=== PATIENT | female | born 1930 | race Caucasian/White ===

== ENCOUNTER 2017-03-16 00:21 | Emergency (ER) | payer OTHER ==
[~2017-03-16] VITALS: Ht 162.6 cm; Wt 68.2 kg
[2017-03-16 00:27] VITALS: Ht 162.6 cm; Wt 68.2 kg
[2017-03-16] MEDS ORDERED: DEXTROSE 50% 50 ML SYRINGE IV STA (01:50)
--- NOTE | 2017-03-16 04:12 | ERD ---
ER Documentation Chief Complaint Date/Time DATE: 03/16/17 TIME: 04:10 Chief Complaint BIBA RA39 BS23 at home,rec'd D10,BS rechecked 257 HPI Patient is an 87-year-old female with hypertension and diabetes who presents with low blood sugar. The patient was brought in by ambulance. She was altered at home and her sugar was 43. The daughter gave her insulin by mistake thinking that this would bring the sugar. The medics arrived in the sugar reading was "low" that they gave 250 mL of D10 and now the sugar was 257. The patient is now more awake. The patient came from home. The patient has a G- tube and gets tube feedings at home. ROS All systems reviewed and are negative except as per history of present illness. Allergies Allergies: Coded Allergies: No Known Allergy (Unverified , 03/16/17) PMhx/Soc Positive for diabetes and hypertension FmHx Family History: diabetes Physical Exam Vitals Vital Signs Date Time Temp Pulse Resp B/P Pulse Ox O2 Delivery O2 Flow Rate FiO2 03/16/17 03:52 73 18 144/50 100 Room Air 03/16/17 02:33 65 16 145/50 100 Room Air 03/16/17 00:45 73 16 149/59 98 Room Air 03/16/17 00:27 97.5 86 18 178/78 97 Physical Exam Const: No acute distress Head: Atraumatic Eyes: Normal Conjunctiva ENT: Normal External Ears, Nose and Mouth. Neck: Full range of motion..~ No meningismus. Resp: Clear to auscultation bilaterally Cardio: Regular rate and rhythm, no murmurs Abd: Soft, non tender, non distended. Normal bowel sounds Skin: No petechiae or rashes Back: No midline or flank tenderness Ext: No cyanosis, or edema Neur: Awake and alert Psych: Normal Mood and Affect Results 24 hrs Laboratory Tests Test 03/16/17 01:47 03/16/17 03:48 Bedside Glucose 55mg/dL 185mg/dL Current Medications Medications (Trade) Dose Ordered Sig/Jayla Route PRN Reason Start Time Stop Time Status Last Admin Dose Admin Dextrose (D50w Syringe) 50 ml IV STAT IV 03/16/17 01:50 03/16/17 01:51 DC 03/16/17 02:01 Procedures/MDM Patient is a 87-year-old female presents with hypoglycemia. Her daughter mistakenly gave her insulin when the sugar was already low. The patient was given D10 by paramedics and her sugar came up. She had another Accu-Chek done in the emergency department which showed a low blood sugar and D50 was given via the IV. I also told the daughters to bring in the patient's tube feeds and we did give her tube feedings in the emergency department. The patient was watched in the emergency department for 4 hours and no longer is hypoglycemic and has a normal neurologic exam. The patient will be discharged to the care of the daughters. They were educated not to give insulin when the patient is hypoglycemic. Observation Note: Time: 4 hours Family Hx: Positive for diabetes Evaluation: Multiple exams showed improving symptoms and no evidence of clinical decompensation. Departure Diagnosis: Primary Impression: Hypoglycemia Condition: Fair Patient Instructions: Hypoglycemia (Low Blood Sugar) Referrals: Your doctor Additional Instructions: Llame al doctor MAANA y manoj josefina NIKOLAY PARA DENTRO DE 1-2 DONALDSON.Dgale a la secretaria que nosotros le instruimos hacer esta nikolay.Avise o llame si woodruff condicin se empeora antes de la nikolay. Regresa aqui si peor o no mejor. BETY JAIME MD Mar 16, 2017 04:12
[2017-03-16 04:30] VITALS: BP 133/49; PULSE 87; RESP 18
== END 2017-03-16 04:30 | disposition home or self-care (01) ==
LOC: E/R 00:21
DX: E11.649 Type 2 diabetes mellitus with hypoglycemia without coma (principal); I10 Essential (primary) hypertension
CPT/HCPCS: 82962; 96374